=== PATIENT | female | born 1945 | race Caucasian/White ===

== ENCOUNTER 2022-02-26 14:47 | Inpatient (IN) ==
--- NOTE | 2022-02-26 15:32 | DR.FEVERAD ---
HPI Time seen Time Seen by Provider: 02/26/22 15:31 PCP Primary Care Physician: SENAIT FOWLER HPI Comment HPI Comment: PATIENT IS 77YR OLD FEMALE IN ER WITH FEVER, CHILLS AND CONFUSION TIMES 3 DAYS. ON CIPRO FOR UTI. HAVING URINARY FREQUENCY AND CONFUSION. PATIENT IS WEAK AND RUNNING FEVER. NOT GETTING BETTER. NO VOMITING OR DIARRHEA OR DYSURIA. Complaints/Symptoms Chief Complaint Doctor Comments: FEVER, CHILLS, CONFUSION. ON CIPRO FOR UTI. Chief Complaint:: PT'S DAUGHTER REPORTS THAT PT HAS BEEN HAVING FEVER ( 102.8), AND > CONFUSION PT WAS DX WITH UTI AND PLACED ON CIPRO LAST MONDAY AND PTS FAMILY REPORTS > UNRINATION AND CONFUSION AND AND FEVER OF 102.8 TODAY PT WAS GIVEN MOTRIN AT NOON , PTS DAUGHTER CALLED HER PCP ON THE AFTER HOURS NUMBER AND PT TOLD TO COME TO ER FOR LOWELL TORREZ COVID-19 Coronavirus risk:travel/contact w/high risk person: No Has patient experienced Coronavirus symptoms: Yes Coronavirus symptoms experienced: Fever Nurses notes reviewed Nurses Notes Review: Yes Source History Provided: Patient Mode of Arrival Mode of Arrival: Wheelchair Timing Onset of Chief Complaint: 02/23/22 Came on: Suddenly Duration Duration: Constant Duration: Days Severity Fever Severity/Quality: greater than 102 F Context Recent: Antibiotic Symptoms: Fever and Chills History of: None Modifying factors Modifying factors: Ibuprofen Associated signs and symptoms Associated signs and symptoms: Weakness and Confusion PMH PMH Past Medical History: Yes Past Medical History: Anxiety Past Surgical History: Yes Surgical History: Ortho Surgery and Tonsillectomy Family History History of Family Medical Conditions: Yes Family Medical History: Cancer and Heart Failure Social History Does patient currently use any type of tobacco product: No Have you used tobacco products in the last 12 months: No Type of Tobacco Use: None Does any household member use tobacco: No Alcohol Use: None Do you use any recreational Drugs:: No Lives With: Family Lives Where: Home Travel Risk Coronavirus risk:travel/contact w/high risk person: No Has patient experienced Coronavirus symptoms: Yes Coronavirus symptoms experienced: Fever Infectious screening In the last 2 months have you had wt loss of >10#?: NO Have you had fever, night sweats or hemotysis?: No Have you traveled outside the country in the last 6 months?: No Isolation: Standard ROS Review of Systems Constitutional: See HPI, Fever, Weakness and Fatigue Eyes: No Symptoms Reported and See HPI ENTM: No Symptoms Reported and See HPI; negative Nose Discharge and Nose Congestion Respiratoy: No Symptoms Reported and See HPI; negative Moist Cough, Short of Breath and Wheezing Cardiovascular: No Symptoms Reported and See HPI; negative Chest Pain Gastrointestinal/Abdominal: No Symptoms Reported and See HPI; negative Abdominal Pain, Diarrhea and Vomiting Genitourinary: See HPI and Frequency Neurological: See HPI and Weakness; negative Headache and Dizziness Musculoskeletal: See HPI and Back Pain Integumentary: No Symptoms Reported and See HPI; negative Rash and Juandice Hematologic/Lymphatic: No Symptoms Reported, See HPI, Easy Bleeding and Easy Bruising Endocrine: No Symptoms Reported and See HPI; negative Increased Thirst and Increased Urine Psychiatric: No Symptoms Reported and See HPI All Other Systems: Reviewed and Negative PE Vital Signs Vitals: Temperature 97.7 F Pulse Rate 107 Respiratory Rate 22 Blood Pressure [Left Arm] 167/77 Blood Pressure 134/62 O2 Sat by Pulse Oximetry 100 General Limitations: No Limitations General Appearance: Alert and In No Apparent Distress Head Head Exam: Normal Inspection Eyes Eye exam: Normal Appearance; negative Scleral Icterus and Conjunctival Injection ENT ENT Exam: Normal Exam, Normal Oropharynx, Normal External Ear Exam and TM's Normal Bilaterally External Ear Exam: negative Mastoid Tenderness TM/Canal Exam: Bilateral: Normal Nose Exam: Normal Nose Exam Mouth Exam: Normal Inspection Teeth Exam: Dental Caries; negative Dental Tenderness # and Gingival Swelling Neck Neck Exam: Normal Inspection and Trachea Midline; negative Tenderness Respiratory Respiratory Exam: Normal Lung Sounds Bilat; negative Accessory Muscle Use, Chest Wall Tenderness and Respiratory Distress Respiratory Exam: Bilateral: Rhonchi Cardiovascular Cardiovascular Exam: Regular Rate, Normal Rhythm and Normal Heart Sounds; negati ve Systolic Murmur and Diastolic Murmur Abdominal Exam Abdominal Exam: Normal Inspection, Normal Bowel Sounds and Soft; negative Tenderness Extremities Extremities Exam: Normal Inspection and Normal Capillary Refill Back Back Exam: Normal Inspection; negative (R) CVA Tenderness and (L) CVA Tenderness Neurologic Neurological Exam: Alert and Oriented X3; negative Motor Sensory Deficit Psychiatric Psychiatric Exam: Normal Affect and Normal Mood Skin Skin Exam: Dry MDM Differential Diagnosis Differential Diagnosis: Dehydration, Electrolyte disorder, Myocardial Infarction, Pneumonia, Pyelonephritis, UTI and Viral syndrome COURSE Treatment Treatment: SEE ORDERS DONE WHILE PATIENT WAS IN ER. TYLENO 1GM IVPB AND LEVAQUIN 500MG IVPB WAS GIVEN PATIENT. PABS, EKG AND XRAY REPORTS WAS DISCUSSED WITH PATIENT. Consultation Consultation Comments: DISCUSSED PATIENT WITH DR. SAPP. HE WILL ADMIT PATIENT. Education/Counseling Education/Counseling: Patient Educated On: Diagnosis ROR Labs Reviewed Laboratory Results Reviewed?: Yes Result Diagrams: 03/01/22 05:08 03/01/22 05:08 Laboratory: 02/26/22 16:29 Blood Blood Culture - Final 02/26/22 16:18 Blood Blood Culture - Final WBC 20.3 X10^3/uL (3.6-10.0) H 02/26/22 16:18 RBC 4.68 X10^6/uL (3.5-5.4) 02/26/22 16:18 Hgb 14.0 g/dL (12.0-16.0) 02/26/22 16:18 Hct 42.1 % (36.0-47.0) 02/26/22 16:18 MCV 90.0 fL (80.0-100.0) 02/26/22 16:18 MCH 29.9 pg (27.0-34.0) 02/26/22 16:18 MCHC 33.2 g/dL (33.0-35.0) 02/26/22 16:18 RDW 13.5 % (11.6-16.5) 02/26/22 16:18 Plt Count 287 X10^3/uL (150.0-450.0) 02/26/22 16:18 Plt Count Comment Adequate (ADEQUATE) 02/26/22 16:18 MPV 8.3 fL (7.4-11.0) 02/26/22 16:18 Neut % (Auto) 91.8 % (42.0-75.0) H 02/26/22 16:18 Lymph % (Auto) 1.9 % (21.0-51.0) L 02/26/22 16:18 [place] % (Auto) 3.5 % (0.0-13.0) 02/26/22 16:18 Eos % (Auto) 2.6 % (0.9-2.9) 02/26/22 16:18 Baso % (Auto) 0.2 % (0.2-1.0) 02/26/22 16:18 Neut # (Auto) 18.7 x10^3/uL (2.2-4.8) H 02/26/22 16:18 Lymph # (Auto) 0.4 X10^3/uL (1.3-2.9) L 02/26/22 16:18 [place] # (Auto) 0.7 x10^3/uL (0.3-0.8) 02/26/22 16:18 Eos # (Auto) 0.5 x10^3/uL (0.0-0.2) H 02/26/22 16:18 Baso # (Auto) 0.0 X10^3/uL (0.0-0.1) 02/26/22 16:18 Absolute Nucleated RBC 0.1 /100WBC 02/26/22 16:18 Total Counted 100 02/26/22 16:18 Neutrophils % (Manual) 90 % (39-76) H 02/26/22 16:18 Lymphocytes % (Manual) 3 % (13-43) L 02/26/22 16:18 Monocytes % (Manual) 3 % (4-9) L 02/26/22 16:18 Eosinophils % (Manual) 4 % (0-6) 02/26/22 16:18 Plt Morphology Comment Normal (NORMAL) 02/26/22 16:18 RBC Morphology Normal (NORMAL) 02/26/22 16:18 Sodium 140 mmol/L (136-145) 02/26/22 16:18 Corrected Sodium TNP 02/26/22 16:18 Potassium 4.0 mmol/L (3.5-5.1) 02/26/22 16:18 Chloride 101 mmol/L (98-107) 02/26/22 16:18 Carbon Dioxide 30.5 mmol/L (21-32) 02/26/22 16:18 BUN 20 mg/dL (7-18) H 02/26/22 16:18 Creatinine 1.09 mg/dL (0.55-1.02) H 02/26/22 16:18 Est GFR (MDRD) Af Amer > 60 (>60) 02/26/22 16:18 Est GFR (MDRD) Non-Af 52 (>60) L 02/26/22 16:18 Glucose 84 mg/dL (65-99) 02/26/22 16:18 Calcium 9.0 mg/dL (8.5-10.1) 02/26/22 16:18 Corrected Calcium TNP 02/26/22 16:18 Total Bilirubin 0.80 mg/dL (0.2-1.0) 02/26/22 16:18 AST 17 Units/L (15-37) 02/26/22 16:18 ALT 21 Units/L (12-78) 02/26/22 16:18 Alkaline Phosphatase 85 Units/L (46-116) 02/26/22 16:18 Creatine Kinase 211 Units/L (26-192) H 02/26/22 16:18 CK-MB (CK-2) 1.4 ng/mL (0-4.0) 02/26/22 16:18 CK/CKMB % Calc 0.7 % (<4) 02/26/22 16:18 Troponin I High Sens 9.5 ng/L (4.0-60.0) 02/26/22 16:18 Total Protein 8.1 g/dL (6.4-8.2) 02/26/22 16:18 Albumin 3.7 g/dL (3.4-5.0) 02/26/22 16:18 Globulin 4.4 g/dL (2.5-4.5) 02/26/22 16:18 Albumin/Globulin Ratio 0.8 Ratio (1.1-2.1) L 02/26/22 16:18 Specimen Type Clean catch urine 02/26/22 15:35 Urine Color Yellow (YELLOW) 02/26/22 15:35 Urine Appearance Clear (CLEAR) 02/26/22 15:35 Urine pH 6.0 (5.0 - 8.0) 02/26/22 15:35 Ur Specific [place] 1.010 (1.000-1.030) 02/26/22 15:35 Urine Protein 1+ (NEGATIVE) 02/26/22 15:35 Urine Glucose (UA) Negative (NEGATIVE) 02/26/22 15:35 Urine Ketones Negative (NEGATIVE) 02/26/22 15:35 Urine Blood 2+ (NEGATIVE) 02/26/22 15:35 Urine Nitrite Negative (NEGATIVE) 02/26/22 15:35 Urine Bilirubin Negative (NEGATIVE) 02/26/22 15:35 Urine Urobilinogen Normal (NORMAL) 02/26/22 15:35 Ur Leukocyte Esterase 2+ (NEGATIVE) 02/26/22 15:35 Urine RBC 0-2 /HPF (0-3) 02/26/22 15:35 Urine WBC 5-10 /HPF (0-5) A 02/26/22 15:35 Ur Squamous Epith Cells Numerous /HPF (NEGATIVE) 02/26/22 15:35 Urine Bacteria 2+ /HPF (NEGATIVE) 02/26/22 15:35 Urine Mucus Few /HPF (NEGATIVE) 02/26/22 15:35 Ur Culture Indicated? No/not indicated 02/26/22 15:35 SARS-CoV-2 (PCR) Negative (NEGATIVE) 02/26/22 21:23 XRAY XRAY Interpreted by: Radiologist (REPORTS NOTED.) and Self EKG Rate: 100 [place]: Normal Rhythm: NSR Block: None Hypertrophy: None ST: Nonsp (LOW VOLTAGE.) Opioid Opioid Risk Tool Age (Bj box if 16-45): No History of Preadolescent Sexual Abuse: No Total: 0 Total Score Risk Category: Low Risk Copyright: Jose PAGAN predicting aberrant behaviors Diagnosis Discharge Problem: Pyelonephritis, Generalized weakness, Acute dehydration Instructions Instructions: Antibiotic Medicine, Adult, Sihn-ni-Evud Pyelonephritis, Adult, Jzud-za-Rfim Weakness, Xnmt-mu-Siea Urinary Tract Infection, Adult, Ovno-ng-Uyji Managing Your Hypertension Forms: Precautions for COVID19 [facility] Social Distancing
[2022-02-26 16:10] LABS: BILIRUBIN,URINE NEGATIVE (NEGATIVE); BLOOD/HEMOGLOBIN,URINE 2+ (NEGATIVE); GLUCOSE, URINE NEGATIVE (NEGATIVE); KETONES,URINE NEGATIVE (NEGATIVE); LEUKOCYTE ESTERASE ,URINE 2+ (NEGATIVE); NITRITES,URINE NEGATIVE (NEGATIVE); PROTEIN,URINE 1+ (NEGATIVE); UROBILINOGEN,URINE NORMAL (NORMAL)
[2022-02-26 16:28] LABS: APPEARANCE,URINE CLEAR (CLEAR); COLOR,URINE YELLOW (YELLOW)
[2022-02-26 16:31] LABS: BACTERIA,URINE 2+ /HPF (NEGATIVE); RBC,URINE 0-2 /HPF (0-3); SQUAMOUS EPITHELIAL CELL,UR NUMEROUS /HPF (NEGATIVE)
[2022-02-26 16:53] LABS: BASOPHILS % (AUTO) 0.2 % (0.2-1.0); EOSINOPHILS # (AUTO) 0.5 x10^3/uL (0.0-0.2); EOSINOPHILS % (AUTO) 2.6 % (0.9-2.9); HEMATOCRIT 42.1 % (36.0-47.0); LYMPHOCYTES # (AUTO) 0.4 X10^3/uL (1.3-2.9); LYMPHOCYTES % (AUTO) 1.9 % (21.0-51.0); MEAN CORPUSCULAR HEMOGLOBIN 29.9 pg (27.0-34.0); MEAN CORPUSCULAR HGB CONC 33.2 g/dL (33.0-35.0); MEAN PLATELET VOLUME 8.3 fL (7.4-11.0); MONOCYTES # (AUTO) 0.7 x10^3/uL (0.3-0.8); MONOCYTES % (AUTO) 3.5 % (0.0-13.0); NEUTROPHILS # (AUTO) 18.7 x10^3/uL (2.2-4.8); NEUTROPHILS % (AUTO) 91.8 % (42.0-75.0); RED BLOOD COUNT 4.68 X10^6/uL (3.5-5.4); RED CELL DISTRIBUTION WIDTH 13.5 % (11.6-16.5); WHITE BLOOD COUNT 20.3 X10^3/uL (3.6-10.0)
[2022-02-26 17:17] LABS: ALANINE AMINOTRANSFERASE 21 Units/L (12-78); ALBUMIN 3.7 g/dL (3.4-5.0); ALKALINE PHOSPHATASE 85 Units/L (46-116); ASPARTATE AMINO TRANSFERASE 17 Units/L (15-37); BLOOD UREA NITROGEN 20 mg/dL (7-18); CARBON DIOXIDE 30.5 mmol/L (21-32); CHLORIDE 101 mmol/L (98-107); CKMB % 0.7 % (<4); CREATINE KINASE 211 Units/L (26-192); CREATINE KINASE MB 1.4 ng/mL (0-4.0); CREATININE 1.09 mg/dL (0.55-1.02); SODIUM 140 mmol/L (136-145); TOTAL PROTEIN 8.1 g/dL (6.4-8.2); eGFR NON BLACK RACES 52 (>60)
[2022-02-26 17:43] LABS: PLATELET MORPHOLOGY COMMENT NORMAL (NORMAL)
[2022-02-26] MEDS ORDERED: NS 1,000 ML IV 1,000 ML ONE (20:35)
[2022-02-26] MEDS: NS 1,000 ML IV 1,000 ML IV SCH (20:47)
[2022-02-26] MEDS ORDERED: OFIRMEV IV 1000 MG VIAL 1,000 MG/100 ML VIAL IV ONE ×2 (21:02→21:15)
[2022-02-26] MEDS ORDERED: LEVAQUIN PREMIX IV 500 MG 500 MG/100 ML BAG IV ONE ×2 (21:05→21:36)
--- NOTE | 2022-02-26 22:13 | RAD ---
HISTORYsob PMH: SPINALSTENOSIS.br IN NECK, ORTHO, TONSILSSTUDYCHEST, 1 VIEWCOMPARISONFINDINGSThe trachea is midline. The cardiac silhouette is unremarkable. The lungs are clear without focal infiltrate or effusion. The bony thorax is unremarkable.IMPRESSIONNo acute cardiopulmonary findings .Electronically signed by: Rufus Malhotra (Feb 26, 2022 22:13:07)
[2022-02-26] MEDS ORDERED: TYLENOL 500 MG TAB EXTRA STRENGTH PO PRN (23:13)
[2022-02-27 00:42] VITALS: BMI 27.4
[2022-02-27 05:01] LABS: BASOPHILS % (AUTO) 0.1 % (0.2-1.0); EOSINOPHILS # (AUTO) 1.3 x10^3/uL (0.0-0.2); EOSINOPHILS % (AUTO) 9.1 % (0.9-2.9); HEMATOCRIT 37.7 % (36.0-47.0); HEMOGLOBIN 12.5 g/dL (12.0-16.0); LYMPHOCYTES # (AUTO) 0.8 X10^3/uL (1.3-2.9); MEAN CORPUSCULAR HEMOGLOBIN 29.6 pg (27.0-34.0); MEAN CORPUSCULAR HGB CONC 33.3 g/dL (33.0-35.0); MONOCYTES # (AUTO) 0.7 x10^3/uL (0.3-0.8); MONOCYTES % (AUTO) 4.8 % (0.0-13.0); NEUTROPHILS # (AUTO) 11.4 x10^3/uL (2.2-4.8); RED BLOOD COUNT 4.23 X10^6/uL (3.5-5.4); RED CELL DISTRIBUTION WIDTH 13.8 % (11.6-16.5); WHITE BLOOD COUNT 14.2 X10^3/uL (3.6-10.0)
[2022-02-27 05:04] LABS: ALANINE AMINOTRANSFERASE 16 Units/L (12-78); ALBUMIN 2.8 g/dL (3.4-5.0); ALKALINE PHOSPHATASE 71 Units/L (46-116); ASPARTATE AMINO TRANSFERASE 13 Units/L (15-37); BLOOD UREA NITROGEN 18 mg/dL (7-18); CALCIUM 8.5 mg/dL (8.5-10.1); CARBON DIOXIDE 31.6 mmol/L (21-32); CHLORIDE 105 mmol/L (98-107); COR CA(FOR HYPOALB) 9.5 mg/dL (8.5-10.1); CREATININE 1.05 mg/dL (0.55-1.02); MAGNESIUM 2.2 mg/dL (1.7-2.9); SODIUM 141 mmol/L (136-145); TOTAL PROTEIN 6.8 g/dL (6.4-8.2); eGFR NON BLACK RACES 54 (>60)
[2022-02-27 07:56] LABS: BILIRUBIN,URINE NEGATIVE (NEGATIVE); BLOOD/HEMOGLOBIN,URINE 1+ (NEGATIVE); GLUCOSE, URINE NEGATIVE (NEGATIVE); KETONES,URINE NEGATIVE (NEGATIVE); LEUKOCYTE ESTERASE ,URINE NEGATIVE (NEGATIVE); NITRITES,URINE NEGATIVE (NEGATIVE); PROTEIN,URINE NEGATIVE (NEGATIVE); UROBILINOGEN,URINE NORMAL (NORMAL)
[2022-02-27 08:13] LABS: APPEARANCE,URINE CLEAR (CLEAR); COLOR,URINE YELLOW (YELLOW)
[2022-02-27 08:14] LABS: BACTERIA,URINE NEGATIVE /HPF (NEGATIVE); RBC,URINE 0-2 /HPF (0-3); SQUAMOUS EPITHELIAL CELL,UR RARE /HPF (NEGATIVE)
[2022-02-27] MEDS ORDERED: LEVAQUIN PREMIX IV 500 MG 500 MG/100 ML BAG IV SCH (09:00)
--- NOTE | 2022-02-27 11:19 | DR.H&P ---
H&P - History & Physical for Day of: H&P Date: 02/26/22 - Chief Complaint Chief Complaint: FEVER, AMS, WEAKNESS, LOW BACK PAIN - History of Present Illness History of Present Illness: IS A 77 YEAR OLD PATIENT OF OURS. SHE REPORTED TO THE ER WITH COMPLAINTS OF FEVER, CONFUSION, LOW BACK PAIN, AND GENERALIZED WEAKNESS. SHE WAS RECENTLY DIAGNOSED AND TREATED FOR A UTI. SHE WAS PRESCRIBED CIPRO ON 02/23/22. SHE HAS TAKEN MEDICATION APPROPRIATELY WITHOUT ANY MISSED DOSAGES. 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 ON ARRIVAL TO THE ER, VITALS WERE 97.3-164-49-100%-134/62. LABS WERE OBTAINED. WBC 20.3, RBC 4.68, HGB 14.0, HCT 42.1, IN1.48, PTT 40.7, SODIUM 140, POTASSIUM 4.0, CHLORIDE 101, BUN 20, CREATININE 1.09, GLUCOSE 84, CALCIUM 9.0, AST 17, ALT 21, ALK PHOS 85, CREATINE KINASE 211, TOTAL PROTEIN 8.1, ALBUMIN 3.7. URINALYSIS REVEALED: WBC 5-10, RBC 0-2, LEUKOCUTES 2+, BACTERIA 2+, PROTEIN 1+. COVID-19 NEGATIVE. BLOOD CULTURES WERE SET UP. EKG WAS OBTAINED AND REVEALED: NSR WITH HR 100 BPM. CHEST XRAY OBTAINED AND REVEALED: NO ACUTE CARDIOPULMONARY FINDINGS. IN THE ER, SHE WAS GIVEN LEVAQUIN 500MG IV X 1, AND OFIRVMEV 1000MG IV X 1 DOSE. SHE WAS ADMITTED TO THE HOSPTIAL FOR FURTHER EVALUATION AND TREATMENT OF ACUTE PYELONEPHRITIS, DEHYDRATION, GENERALIZED WEAKNESS, AMS. SHE WAS STARTED ON NORMAL SALINE AT 75 ML/HR, LEVAQUIN 250MG IV HS, AND TYLENOL 500MG-[id number] PO Q6H PRN. WE PLAN TO SET UP A URINE CULTURE AND OBTAIN AN ABDOMEN/PELVIS CT. OTHERWISE, WE PLAN TO FOLLOW-UP WITH AM LABS AND CONTINUE TO MONITOR. TIME SPENT ON CLINICAL ASSESSMENT, REVIEWING LABS AND IMAGING, DECISION MAKING, AND DOCUMENTATION GREATER THAN 75 MINUTES. 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, HEART MURMUR, - Past Surgical History Surgical History: Ortho Surgery, Tonsillectomy, Other Additional Surgical History: SPINAL FUSION, LEFT EYE SURGERY, SKIN CANCER REMOVAL - Family History Family Medical History: Diabetes Mellitus, Cancer, Heart Failure - Social History Does patient currently use any type of tobacco product: No Have you used tobacco products in the last 12 months: No Type of Tobacco Use: None Does any household member use tobacco: No Alcohol Use: None Drug Use: Prescription Drugs - Medications Home Medications: Penicillins Allergy (Verified 06/07/18 20:15) Sulfa (Sulfonamide Antibiotics) [SULFA] Allergy (Verified 02/26/22 15:05) CONTINUE taking the following medications cetirizine [Zyrtec] 10 mg PO DAILY 02/26/22 [History] escitalopram oxalate 15 mg PO DAILY 02/26/22 [History] gabapentin 600 mg PO TID 02/26/22 [History] loratadine 10 mg PO DAILY 02/26/22 [History] losartan 25 mg PO DAILY 02/26/22 [History] meloxicam 7.5 mg PO DAILY 02/26/22 [History] minocycline 100 mg PO DAILY 02/26/22 [History] - Review of Systems Constitutional: Fever, Chills, Weakness Eyes: No Symptoms Reported ENT: No Symptoms Reported Respiratory: No Symptoms Reported Cardiovascular: No Symptoms Reported Gastrointestinal: No Symptoms Reported Genitourinary: Dysuria Musculoskeletal: Back Pain Skin: No Symptoms Reported Neurological: Weakness - Physical Exam Vital Signs: Temperature 98.5 F Pulse Rate [Left Radial] 78 Pulse Rate 107 Respiratory Rate 18 Blood Pressure [Left Arm] 117/58 Blood Pressure 134/62 O2 Sat by Pulse Oximetry 100 Oriented: Normal Eyes: Normal Ear: Normal Nose: Normal Throat: Normal Respiratory: Diminished Throughout Cardiovascular: Normal : Normal Auscultation: Bowel Sounds: Normal Palpation: Normal Tenderness: Normal Skin: Decreased Turgur Musculoskeletal: Normal Psychiatric: Normal Mood Description: Calm Affect: Normal Speech Pattern: Clear - Assessment/Plan (1) Pyelonephritis Status: Acute Plan: ADMIT, OBTAIN ABDOMEN/PELVIS CT, NORMAL SALINE AT 75 ML/HR, LEVAQUIN 250MG IV HS, AND TYLENOL [id number] PO Q6H PRN, RESUME HOME MEDS (2) Acute dehydration Status: Acute (3) AMS (altered mental status) Qualifiers: Altered mental status type: transient alteration of awareness Qualified Code(s): R40.4 - Transient alteration of awareness Status: Acute (4) Generalized weakness Status: Acute - Allergies Allergies/Adverse Reactions: Allergies Allergy/AdvReac Type Severity Reaction Status Date / Time Penicillins Allergy Verified 06/07/18 20:15 Sulfa (Sulfonamide Allergy Verified 02/26/22 15:05 Antibiotics) [SULFA]
[2022-02-27] MEDS: NS 1,000 ML IV 1,000 ML IV SCH (13:17)
--- NOTE | 2022-02-27 13:40 | CT ---
HISTORYAcute PyelonephritisSTUDYABDOMEN/PELVIS W/O CONCOMPARISONNone availableTECHNIQUEMultiple axial images of the abdomen and pelvis were obtained from the lung bases to the pubic symphysis without the administration of IV contrast. Dose reduction techniques including Automated Exposure Control (AEC) and adjustment of mA and kV were utilized.FINDINGS[Mild scarring/subsegmental atelectasis within the lung bases.No focal hepatic lesion. The liver, gallbladder, bile ducts, spleen, pancreas and adrenal glands are normal. Right kidney contains a punctate nonobstructing stone within the lower pole. No ureteral stone or hydronephrosis. The left kidney demonstrates no nephrolithiasis, hydronephrosis or solid mass. No perinephric stranding within either kidney.Upper GI tract demonstrates no evidence of mass or obstruction. Urinary bladder is normal. No pelvic or adnexal mass. The rectum and colon are normal. The appendix is normal.Abdominal aorta is normal in caliber with scattered calcified atherosclerotic disease.Review of bone windows demonstrates no acute osseous abnormality. Bilateral moderate femoroacetabular osteoarthrosis.IMPRESSIONPunctate nonobstructing stone within the right kidney.No acute inflammatory process within the abdomen or pelvis given limitations of a noncontrast examination.Electronically signed by: RAMO MORELAND (February 27, 2022 13:39:58)
[2022-02-27] MEDS ORDERED: LEVAQUIN PREMIX IV 250 MG 250 MG/50 ML BAG IV SCH (21:00)
[2022-02-28] MEDS: NS 1,000 ML IV 1,000 ML IV SCH ×2 (01:17→16:17)
[2022-02-28 05:19] LABS: BASOPHILS % (AUTO) 0.2 % (0.2-1.0); EOSINOPHILS # (AUTO) 1.3 x10^3/uL (0.0-0.2); HEMATOCRIT 34.7 % (36.0-47.0); HEMOGLOBIN 11.6 g/dL (12.0-16.0); LYMPHOCYTES # (AUTO) 1.6 X10^3/uL (1.3-2.9); LYMPHOCYTES % (AUTO) 18.5 % (21.0-51.0); MEAN CORPUSCULAR HGB CONC 33.5 g/dL (33.0-35.0); MEAN CORPUSCULAR VOLUME 89.4 fL (80.0-100.0); MEAN PLATELET VOLUME 8.2 fL (7.4-11.0); MONOCYTES # (AUTO) 0.5 x10^3/uL (0.3-0.8); MONOCYTES % (AUTO) 5.2 % (0.0-13.0); NEUTROPHILS # (AUTO) 5.4 x10^3/uL (2.2-4.8); NEUTROPHILS % (AUTO) 61.1 % (42.0-75.0); RED BLOOD COUNT 3.88 X10^6/uL (3.5-5.4); RED CELL DISTRIBUTION WIDTH 13.8 % (11.6-16.5); WHITE BLOOD COUNT 8.8 X10^3/uL (3.6-10.0)
[2022-02-28 05:35] LABS: ALANINE AMINOTRANSFERASE 13 Units/L (12-78); ALBUMIN 2.6 g/dL (3.4-5.0); ALKALINE PHOSPHATASE 60 Units/L (46-116); ASPARTATE AMINO TRANSFERASE 10 Units/L (15-37); BLOOD UREA NITROGEN 15 mg/dL (7-18); CALCIUM 8.4 mg/dL (8.5-10.1); CARBON DIOXIDE 26.6 mmol/L (21-32); CHLORIDE 107 mmol/L (98-107); COR CA(FOR HYPOALB) 9.5 mg/dL (8.5-10.1); CREATININE 0.87 mg/dL (0.55-1.02); SODIUM 140 mmol/L (136-145); TOTAL PROTEIN 6.2 g/dL (6.4-8.2); eGFR NON BLACK RACES > 60 (>60)
[2022-02-28] MEDS ORDERED: LEXAPRO PO SCH ×2 (10:00→21:00)
[2022-02-28] MEDS ORDERED: LEXAPRO ONE ×2 (10:16→20:05)
[2022-02-28] MEDS: COZAAR PO SCH (10:24)
[2022-02-28] MEDS: MOBIC TAB 15 MG PO SCH (10:24)
[2022-02-28] MEDS: ZyrTEC TAB 10 MG PO SCH (10:24)
[2022-02-28] MEDS: LOVENOX INJ 40 MG SYR SC SCH (10:25)
--- NOTE | 2022-02-28 10:48 | PCM.PROG ---
Progress Note - Progress Note for Day of Date of Exam: 02/28/22 - Subjective Subjective: WAS ADMITTED FOR TREATMENT OF PYELONEPHRITIS, DEHYDRATION, GENERALIZED WEAKNESS, AND AMS. TODAY, SHE IS ALERT AND ORIENTED, SITTING UP IN BED ON MORNING ROUNDS. SHE CONTINUES WITH COMPLAINTS OF GENERALIZED WEAKNESS TODAY. SHE ALSO REPORTS LOWER ABDOMINAL CRAMPING AND FREQUENT URINATION. ON EXAMINATION, HEART IS REGULAR IN RATE AND RHYTHM. BILATERAL LUNGS NOTED WITH DIMINISHED LUNG SOUNDS THROUGHOUT. ABDOMEN IS ROUND, SOFT, NOTED WITH MILD SUPRAPUBIC TENDERNESS. NORMAL BOWEL SOUNDS ARE NOTED IN ALL QUADRANTS. NO UPPER OR LOWER EXTREMITY EDEMA NOTED. HER VITALS THIS MORNING ARE: 98.2-68-18-97%-131/64. SHE IS UTILIZING OXYGEN VIA NC AT 2 LPM. HER VITALS THIS MORNING ARE: 98.2-68-18-97%-131/64. LABS WERE OBTAINED. WBC 8.8, RBC 3.88, HGB 11.6, HCT 34.7, SODIUM 140, POTASSIUM 4.5, BUN 15, CREATININE 0.87, GLUCOSE 97, AST 10, ALT 13, ALK PHOS 60, TOTAL PROTEIN 6.2, ALBUMIN 2.6. URINE AND BLOOD CULTURES ARE PENDING. PRELIMINARY URINE CULTURE REVEALS GROWTH OF GRAM POSITIVE COCCI. AN ABDOMEN/PELVIS CT WITHOUT CONTRAST WAS OBTAINED YESTERDAY AND REVEALED: Punctate nonobstructing stone within the right kidney. No acute inflammatory process within the abdomen or pelvis given limitations of a non- contrast examination. SHE IS CURRENTLY RECEIVING NORMAL SALINE AT 75 ML/HR, LEVA BHAKTI 500 IV HS, LOVENOX 40MG SC DAILY, AND TYLENOL 500MG-[id number] PO Q6H PRN. HER HOME MEDICATIONS OF ZYRTEC, LEXAPRO, NEURONTIN, COZAAR, AND MOBIC WERE RESUMED. WE WILL CONTINUE WITH CURRENT PLAN OF CARE TODAY. OTHERWISE, WE PLAN TO FOLLOW- UP WITH AM LABS AND CONTINUE TO MONITOR. TIME SPENT ON CLINICAL ASSESSMENT, REVIEWING LABS AND IMAGING, DECISION MAKING, AND DOCUMENTATION GREATER THAN 45 MINUTES. - Past Medical Family Social History Past Med/Fam/Surg Hx: No changes since H&P Allergies: Allergies Penicillins Allergy (Verified 06/07/18 20:15) Sulfa (Sulfonamide Antibiotics) [SULFA] Allergy (Verified 02/26/22 15:05) - Review of Systems ROS: No change since H&P - Vital Signs and I&O's Vital Signs: Temperature 98.2 F Pulse Rate [Right Brachial] 68 Pulse Rate [Left Radial] 72 Pulse Rate 107 Respiratory Rate 18 Blood Pressure [Right Arm] 131/64 Blood Pressure [Left Arm] 129/65 Blood Pressure 134/62 O2 Sat by Pulse Oximetry 97 Intake and Output: Intake & Output 02/25/22 02/26/22 02/27/22 02/28/22 11:59 11:59 11:59 11:59 Intake Total 1244 / 1244 3790 / 3790 Balance 1244 / 1244 3790 / 3790 - Physical Exam Oriented: Normal Eyes: Normal Ear: Normal Nose: Normal Throat: Normal Respiratory: Diminished Cardiovascular: Normal : Normal Auscultation: Bowel Sounds: Normal Palpation: Normal Tenderness: Normal Skin: Decreased Turgur Musculoskeletal: Normal Psychiatric: Normal Mood Description: Calm Affect: Normal Speech Pattern: Clear, Appropriate - Laboratory and Diagnostics Result Diagrams: 02/28/22 04:54 02/28/22 04:54 Labs: 02/27/22 07:45 Urine,Clean Catch Urine Culture - Preliminary Laboratory WBC 8.8 X10^3/uL (3.6-10.0) 02/28/22 04:54 RBC 3.88 X10^6/uL (3.5-5.4) 02/28/22 04:54 Hgb 11.6 g/dL (12.0-16.0) L 02/28/22 04:54 Hct 34.7 % (36.0-47.0) L 02/28/22 04:54 MCV 89.4 fL (80.0-100.0) 02/28/22 04:54 MCH 30.0 pg (27.0-34.0) 02/28/22 04:54 MCHC 33.5 g/dL (33.0-35.0) 02/28/22 04:54 RDW 13.8 % (11.6-16.5) 02/28/22 04:54 Plt Count 219 X10^3/uL (150.0-450.0) 02/28/22 04:54 Plt Count Comment Adequate (ADEQUATE) 02/26/22 16:18 MPV 8.2 fL (7.4-11.0) 02/28/22 04:54 Neut % (Auto) 61.1 % (42.0-75.0) 02/28/22 04:54 Lymph % (Auto) 18.5 % (21.0-51.0) L 02/28/22 04:54 [place] % (Auto) 5.2 % (0.0-13.0) 02/28/22 04:54 Eos % (Auto) 15.0 % (0.9-2.9) H 02/28/22 04:54 Baso % (Auto) 0.2 % (0.2-1.0) 02/28/22 04:54 Neut # (Auto) 5.4 x10^3/uL (2.2-4.8) H 02/28/22 04:54 Lymph # (Auto) 1.6 X10^3/uL (1.3-2.9) 02/28/22 04:54 [place] # (Auto) 0.5 x10^3/uL (0.3-0.8) 02/28/22 04:54 Eos # (Auto) 1.3 x10^3/uL (0.0-0.2) H 02/28/22 04:54 Baso # (Auto) 0.0 X10^3/uL (0.0-0.1) 02/28/22 04:54 Absolute Nucleated RBC 0.0 /100WBC 02/28/22 04:54 Total Counted 100 02/26/22 16:18 Neutrophils % (Manual) 90 % (39-76) H 02/26/22 16:18 Lymphocytes % (Manual) 3 % (13-43) L 02/26/22 16:18 Monocytes % (Manual) 3 % (4-9) L 02/26/22 16:18 Eosinophils % (Manual) 4 % (0-6) 02/26/22 16:18 Plt Morphology Comment Normal (NORMAL) 02/26/22 16:18 RBC Morphology Normal (NORMAL) 02/26/22 16:18 PT 17.4 SECONDS (11.8-14.3) 02/27/22 04:31 INR Target Range - 02/27/22 04:31 INR 1.48 (0.8-1.3) H 02/27/22 04:31 APTT 40.7 SECONDS (22.9-36.5) H 02/27/22 04:31 PTT Comment - 02/27/22 04:31 Sodium 140 mmol/L (136-145) 02/28/22 04:54 Corrected Sodium TNP 02/28/22 04:54 Potassium 4.5 mmol/L (3.5-5.1) 02/28/22 04:54 Chloride 107 mmol/L (98-107) 02/28/22 04:54 Carbon Dioxide 26.6 mmol/L (21-32) 02/28/22 04:54 BUN 15 mg/dL (7-18) 02/28/22 04:54 Creatinine 0.87 mg/dL (0.55-1.02) 02/28/22 04:54 Est GFR (MDRD) Af Amer > 60 (>60) 02/28/22 04:54 Est GFR (MDRD) Non-Af > 60 (>60) 02/28/22 04:54 Glucose 97 mg/dL (65-99) 02/28/22 04:54 Calcium 8.4 mg/dL (8.5-10.1) L 02/28/22 04:54 Corrected Calcium 9.5 mg/dL (8.5-10.1) 02/28/22 04:54 Magnesium 2.2 mg/dL (1.7-2.9) 02/27/22 04:31 Total Bilirubin 0.30 mg/dL (0.2-1.0) 02/28/22 04:54 AST 10 Units/L (15-37) L 02/28/22 04:54 ALT 13 Units/L (12-78) 02/28/22 04:54 Alkaline Phosphatase 60 Units/L (46-116) 02/28/22 04:54 Creatine Kinase 211 Units/L (26-192) H 02/26/22 16:18 CK-MB (CK-2) 1.4 ng/mL (0-4.0) 02/26/22 16:18 CK/CKMB % Calc 0.7 % (<4) 02/26/22 16:18 Troponin I High Sens 9.5 ng/L (4.0-60.0) 02/26/22 16:18 Total Protein 6.2 g/dL (6.4-8.2) L 02/28/22 04:54 Albumin 2.6 g/dL (3.4-5.0) L 02/28/22 04:54 Globulin 3.6 g/dL (2.5-4.5) 02/28/22 04:54 Albumin/Globulin Ratio 0.7 Ratio (1.1-2.1) L 02/28/22 04:54 Specimen Type Clean catch urine 02/27/22 07:45 Urine Color Yellow (YELLOW) 02/27/22 07:45 Urine Appearance Clear (CLEAR) 02/27/22 07:45 Urine pH 7.0 (5.0 - 8.0) 02/27/22 07:45 Ur Specific [place] 1.010 (1.000-1.030) 02/27/22 07:45 Urine Protein Negative (NEGATIVE) 02/27/22 07:45 Urine Glucose (UA) Negative (NEGATIVE) 02/27/22 07:45 Urine Ketones Negative (NEGATIVE) 02/27/22 07:45 Urine Blood 1+ (NEGATIVE) 02/27/22 07:45 Urine Nitrite Negative (NEGATIVE) 02/27/22 07:45 Urine Bilirubin Negative (NEGATIVE) 02/27/22 07:45 Urine Urobilinogen Normal (NORMAL) 02/27/22 07:45 Ur Leukocyte Esterase Negative (NEGATIVE) 02/27/22 07:45 Urine RBC 0-2 /HPF (0-3) 02/27/22 07:45 Urine WBC 0-2 /HPF (0-5) 02/27/22 07:45 Ur Squamous Epith Cells Rare /HPF (NEGATIVE) 02/27/22 07:45 Urine Bacteria Negative /HPF (NEGATIVE) 02/27/22 07:45 Urine Mucus Few /HPF (NEGATIVE) 02/26/22 15:35 Ur Culture Indicated? No/not indicated 02/27/22 07:45 SARS-CoV-2 (PCR) Negative (NEGATIVE) 02/26/22 21:23 - Plan (1) Pyelonephritis Status: Acute Plan: NORMAL SALINE AT 75 ML/HR, LEVAQUIN 500 IV HS, LOVENOX 40MG SC DAILY, AND TYLENOL 500MG-[id number] PO Q6H PRN. RESUME HOME MEDS (2) Acute dehydration Status: Acute (3) AMS (altered mental status) Status: Acute Qualifiers: Altered mental status type: transient alteration of awareness Qualified Code(s): R40.4 - Transient alteration of awareness (4) Generalized weakness Status: Acute (5) Renal colic on right side Status: Acute (6) Hypertension Status: Chronic Qualifiers: Hypertension type: primary hypertension Qualified Code(s): I10 - Essential (primary) hypertension (7) Depression Status: Chronic Qualifiers: Depression Type: major depressive disorder Major depression recurrence: recurrent Active/Remission status: remission status unspecified Qualified Code(s): F33.9 - Major depressive disorder, recurrent, unspecified (8) Allergic rhinitis Status: Chronic Qualifiers: Allergic rhinitis trigger: unspecified Allergic rhinitis seasonality: unspecified Qualified Code(s): J30.9 - Allergic rhinitis, unspecified
[2022-02-28] MEDS: NEURONTIN TAB 600 MG PO SCH ×2 (14:18→21:00)
[2022-02-28] MEDS ORDERED: LEVAQUIN PREMIX IV 500 MG 500 MG/100 ML BAG IV SCH (21:00)
[2022-03-01] MEDS: NEURONTIN TAB 600 MG PO SCH (05:33)
[2022-03-01] MEDS: NS 1,000 ML IV 1,000 ML IV SCH (05:33)
[2022-03-01 05:55] LABS: BASOPHILS % (AUTO) 0.2 % (0.2-1.0); EOSINOPHILS # (AUTO) 1.3 x10^3/uL (0.0-0.2); EOSINOPHILS % (AUTO) 18.7 % (0.9-2.9); HEMATOCRIT 35.6 % (36.0-47.0); HEMOGLOBIN 11.9 g/dL (12.0-16.0); LYMPHOCYTES # (AUTO) 1.8 X10^3/uL (1.3-2.9); LYMPHOCYTES % (AUTO) 24.9 % (21.0-51.0); MEAN CORPUSCULAR HEMOGLOBIN 29.9 pg (27.0-34.0); MEAN CORPUSCULAR HGB CONC 33.4 g/dL (33.0-35.0); MEAN CORPUSCULAR VOLUME 89.8 fL (80.0-100.0); MEAN PLATELET VOLUME 8.3 fL (7.4-11.0); MONOCYTES # (AUTO) 0.5 x10^3/uL (0.3-0.8); NEUTROPHILS # (AUTO) 3.5 x10^3/uL (2.2-4.8); NEUTROPHILS % (AUTO) 49.2 % (42.0-75.0); RED BLOOD COUNT 3.97 X10^6/uL (3.5-5.4); RED CELL DISTRIBUTION WIDTH 13.6 % (11.6-16.5); WHITE BLOOD COUNT 7.1 X10^3/uL (3.6-10.0)
[2022-03-01 06:08] LABS: ALANINE AMINOTRANSFERASE 18 Units/L (12-78); ALBUMIN 2.7 g/dL (3.4-5.0); ALKALINE PHOSPHATASE 62 Units/L (46-116); ASPARTATE AMINO TRANSFERASE 13 Units/L (15-37); BLOOD UREA NITROGEN 17 mg/dL (7-18); CALCIUM 8.5 mg/dL (8.5-10.1); CARBON DIOXIDE 29.2 mmol/L (21-32); CHLORIDE 107 mmol/L (98-107); COR CA(FOR HYPOALB) 9.5 mg/dL (8.5-10.1); CREATININE 0.84 mg/dL (0.55-1.02); SODIUM 141 mmol/L (136-145); TOTAL PROTEIN 6.4 g/dL (6.4-8.2); eGFR NON BLACK RACES > 60 (>60)
[2022-03-01 08:01] VITALS: BP 151/69
[2022-03-01] MEDS: LOVENOX INJ 40 MG SYR SC SCH (08:15)
[2022-03-01] MEDS: ZyrTEC TAB 10 MG PO SCH (08:15)
[2022-03-01] MEDS: MOBIC TAB 15 MG PO SCH (08:16)
[2022-03-01] MEDS: COZAAR PO SCH (08:17)
== END 2022-03-01 11:10 | disposition home or self-care (01) | DRG 690 ==
LOC: ER 14:54 → MED/SURG 22:13
PROVIDERS: ADMIT Internal Medicine; ATTEND Internal Medicine